=== PATIENT | male | born 1985 | race Caucasian/White ===

== ENCOUNTER 2018-09-30 10:16 | Outpatient (CLI) | payer BC ==
[~2018-09-30 10:16] MED LIST: Gadobenate Dimeglumine 529 MG/1 ML (20ML VIAL) ONE
--- NOTE | 2018-09-30 15:49 | MRI ---
PRE AND POSTCONTRAST ENHANCED MRI IMAGES OF THE BRAIN: 09/30/18 HISTORY: Epilepsy. 33-year-old male. Multiplanar and multisequence pre and postcontrast enhanced MRI images of the brain demonstrate no ev idence of intracranial masses, hemorrhages, strokes or contusions seen. The right and left hippocamp i are unremarkable. No evidence of asymmetry seen to suggest mesiotemporal sclerosis. No evidence of white matter abnormality seen. No evidence of abnormal intracranial enhancing lesions seen. IMPRESSION: Normal pre and postcontrast enhanced MRI images of the brain. POS: [facility]
== END 2018-09-30 10:17 | disposition home or self-care (01) ==
LOC: SCSMRI 10:16
PROVIDERS: ATTEND Psychiatry & Neurology Neurology
DX: G40.A09 Absence epileptic syndrome, not intractable, without status epilepticus (principal)
CPT/HCPCS: 70553; A9577